=== PATIENT | female | born 1980 | race Caucasian/White ===

== ENCOUNTER 2020-12-26 14:44 | Emergency (ER) | payer OTHER ==
[~2020-12-26 14:44] MED LIST: BACTRIM DS TAB1 EACH PO; CLEOCIN300 MG PO; SYNTHROID25 MCG PO; TESSALON PERLE100 MG PO; VITAMIN D-32000 UNI1 PO
[2020-12-26 17:40] LABS: BASOPHIL 0.3 % (0-2); EOSINOPHIL 0.7 % (0-5); HCT 40.3 % (37.0-47.0); HGB 13.6 g/dl (12.5-16.0); LYMPHOCYTE 15.7 % (15-48); MCHC 33.7 g/dL (32.0-36.0); MCV 88.8 fL (78.0-100.0); MONOCYTE 7.4 % (0-12); MPV 9.8 fL (6.0-9.5); NEUTROPHIL 75.5 % (41-80); NRBC 0; PLT 254 K/uL (150-400); RBC 4.54 M/uL (4.20-5.40); RDW 13.4 % (11.5-14.0); WBC 9.1 K/uL (4.0-10.5)
[2020-12-26 18:04] LABS: BILIRUBIN NEGATIVE (NEGATIVE); BLOOD TRACE-INTACT Ery/uL (NEGATIVE); CLARITY CLEAR (CLEAR); COLOR YELLOW (YELLOW); GLUCOSE (U) NORMAL (NORMAL); LEUKOCYTES NEGATIVE Leu/uL (NEGATIVE); NITRITE NEGATIVE (NEGATIVE); PROTEIN NEGATIVE (NEGATIVE); UROBILINOGEN 0.2 mg/dL (0.2-1.0); pH 6.5 (5.0-9.0)
[2020-12-26 18:14] LABS: BACTERIA TRACE
[2020-12-26 18:16] LABS: ALBUMIN 3.7 g/dL (3.4-5.0); BILIRUBIN - TOTAL 0.3 mg/dL (0.2-1.0); BUN/CREAT RATIO (CALC) 22.6 RATIO; CREATININE 0.62 mg/dL (0.51-0.95); GLOBULIN (CALCULATION) 3.8 g/dL; MAGNESIUM 1.9 mg/dL (1.8-2.4); POTASSIUM 4.1 mmol/L (3.5-5.1); TOTAL PROTEIN 7.5 g/dL (6.4-8.2)
[2020-12-26] MEDS ORDERED: ANTIVERT25 MG PO (18:31)
[2020-12-26] MEDS ORDERED: REGLAN10 MG PO (18:31)
[2020-12-26] MEDS ORDERED: DIAZEPAM 5MG TAB5 MG PO (18:31)
== END 2020-12-26 19:29 | disposition home or self-care (01) ==
LOC: FER 14:44
PROVIDERS: Emergency Medicine
DX: H81.09 Meniere's disease, unspecified ear (principal); Z86.69 Personal history of other diseases of the nervous system and sense organs; Z88.8 Allergy status to other drugs, medicaments and biological substances
CPT/HCPCS: 36415; 80053; 81001; 83735; 85025; 93005; J2765; J3360